=== PATIENT | male | born 1950 | race Caucasian/White ===

== ENCOUNTER 2016-05-19 07:34 | Day surgery (SDC) | payer OTHER ==
[2016-05-19] MEDS ORDERED: diphenhydrAMINE 25 MG CAP PO ONE ×2 (07:42→08:05)
[2016-05-19] MEDS ORDERED: FAMOTIDINE 20 MG TAB PO ONE (07:42)
[2016-05-19] MEDS ORDERED: DIAZEPAM 5 MG TAB PO ONE (07:42)
[2016-05-19] MEDS ORDERED: ASPIRIN EC 325 MG TAB PO ONE ×2 (07:42→08:05)
[2016-05-19] MEDS ORDERED: NS 1,000 ML IV ONE (07:42)
--- NOTE | 2016-05-19 08:02 | CPEKG ---
Heart Rate: 87 RR Interval: 690 P-R Interval: 140 QRSD Interval: 132 QT Interval: 384 QTC Interval: 462 P Bennett: 72 QRS Bennett: -58 T Wave Bennett: 25 EKG Severity - ABNORMAL ECG - EKG Impression: SINUS RHYTHM EKG Impression: RIGHT BUNDLE BRANCH BLOCK-- New since July 12, 2011 Electronically Signed By: Farooq Holt 19-May-2016 08:50:56
[2016-05-19] MEDS ORDERED: DIAZEPAM 5 MG TAB ONE (08:05)
[2016-05-19] MEDS ORDERED: FAMOTIDINE 20 MG TAB ONE (08:05)
[2016-05-19 08:20] LABS: % IMMATURE GRANULYOCYTES 0.4 % (0.0-1.1); ABSOLUTE IMMATURE GRANULOCYTES 0.03 10^3/uL (0.00-0.10); ADD DIFF? NO; ADD MORPH? NO; ADD SCAN? NO; ATYPICAL LYMPHOCYTE FLAG 10 (0-99); FRAGMENT RBC FLAG 0 (0-99); HEMATOCRIT 46.3 % (40.0-51.0); HEMOGLOBIN 15.7 g/dL (13.7-17.5); LEFT SHIFT FLG 0 (0-99); LIPEMIA HEMOLYSIS FLAG 90 (0-99); MEAN CELL HEMOGLOBIN 29.7 pg (27.9-34.1); MEAN CELL HEMOGLOBIN CONCENTR. 33.9 g/dL (32.4-36.7); MEAN CELL VOLUME 87.7 fL (81.5-99.8); MEAN PLATELET VOLUME 9.5 fL (8.7-11.7); PLATELET CLUMPS FLAG 10 (0-99); PLATELET COUNT 243 10^3/uL (150-400); RED BLOOD CELL COUNT 5.28 10^6/uL (4.40-6.38); RED CELL DISTRIBUTION WIDTH 13.7 % (11.5-15.2)
[2016-05-19 08:33] LABS: ANION GAP 11 mEq/L (8-16); CALCIUM 9.2 mg/dL (8.5-10.4); CARBON DIOXIDE 24 mEq/l (22-31); CHLORIDE 103 mEq/L (97-110); CHOLESTEROL 191 mg/dL (140-220); CHOLESTEROL/HDL RATIO 4.15 RATIO (1.00-4.97); GLOMERULAR FILTRATION RATE > 60; GLUCOSE 153 mg/dL (70-100); HIGH DENSITY LIPOPROTEIN 46 mg/dL (40-65); LDL/HDL RATIO 2.41 RATIO (1.00-3.64); LOW DENSITY LIPOPROTEIN 111 mg/dL (80-100); MAGNESIUM 1.9 mg/dL (1.6-2.3); NON-HIGH DENSITY LIPOPROTEIN 145 mg/dL (90-129); POTASSIUM 4.3 mEq/L (3.5-5.2); SODIUM 138 mEq/L (134-144); TRIGLYCERIDE 173 mg/dL (40-150); VERY LOW DENSITY LIPOPROTEINS 34 mg/dL (8-25)
[2016-05-19 08:38] LABS: INR 0.91 (0.83-1.16); PROTIME(PATIENT) 12.2 SEC (12.0-15.0)
[2016-05-19] MEDS ORDERED: LIDOCAINE 1% 30 ML SDV ONE (08:49)
[2016-05-19] MEDS ORDERED: HEPARIN 10,000 UNIT/10 ML MDV ONE (08:49)
[2016-05-19] MEDS ORDERED: MIDAZOLAM 2 MG/2 ML VIAL ONE ×2 (08:49→10:12)
[2016-05-19] MEDS ORDERED: VERAPAMIL 5 MG/2 ML VIAL ONE (08:49)
[2016-05-19] MEDS ORDERED: fentaNYL 100 MCG/2 ML INJ ONE ×2 (08:49→10:12)
[2016-05-19] MEDS ORDERED: IOPAMIDOL (ISOVUE 370) 100 ML BTL IV ONE ×2 (08:50→09:49)
[2016-05-19] MEDS ORDERED: ATROPINE SULFATE 1 MG/10 ML SYR IVP PRN (10:31)
[2016-05-19] MEDS ORDERED: NITROGLYCERIN 0.4 MG BTL SL PRN (10:31)
--- NOTE | 2016-05-19 10:36 | PDDXCAT ---
Diagnostic Cath Note - . Date: 05/19/16 [facility] Teacher: Kevin Indication: Class I/II angina, intolerance to med therapy or failure to respond High-risk criteria on non-invasive testing: stress-induced moderate-size multiple perfusion defects - Procedure Access: right wrist Procedure: left heart catheterization, coronary angiography, left ventriculogram - Materials Left Heart Cath size: 5F Left Heart Cath materials: JL3.5, pigtail, other (SiteSeer) - Findings-Left Heart Catheterization LM: Unobstructed LAD: Unobstructed LCX: Stent widely patent with collaterals to the distal right coronary RCA: 100% occluded in the midportion EDP: 11 mm of mercury LVEF: 65 Wall motion: Normal Complications: None Closure method: TR Band Assessment: Occluded right coronary artery with excellent collaterals associated with normal LV function. Patent circumflex artery stent. Plan: Attempt PCI of the chronically occluded right coronary artery with favorable characteristics. Intervention: After reviewing diagnostic angiograms it was elected to attempt PCI of the [place] right coronary. Patient was anticoagulated with heparin. Therapeutic ACT was confirmed. Using a 5 [place] JR4 guide the right coronary selectively intubated. Attempts at crossing the chronic occlusion with a 0.014 ship pilot 50, 0.014 fighter wire, and 0.014 luge wire made but failed despite adequate support with 2 mm and a 1.25 sprinter balloon. In light of excellent collaterals was elected to stop. Failed PCI and stenting of the chronically occluded right coronary. Continue chronic medical therapy. Considerations for more aggressive attempt if he fails medical therapy. Patient Problems: Problems Problem Status Onset CAD - Coronary arteriosclerosis Active Angina Active Placement of stent in coronary artery Active
--- NOTE | 2016-05-19 11:35 | CPEKG ---
Heart Rate: 75 RR Interval: 800 P-R Interval: 156 QRSD Interval: 132 QT Interval: 400 QTC Interval: 447 P Center Line: 66 QRS Center Line: -53 T Wave Center Line: 9 EKG Severity - ABNORMAL ECG - EKG Impression: SINUS RHYTHM EKG Impression: RIGHT BUNDLE BRANCH BLOCK EKG Impression: PROBABLE INFERIOR INFARCT, AGE INDETERMINATE EKG Impression: No significant change from May 19, 2016, 8:01 Electronically Signed By: Farooq Holt 19-May-2016 12:51:08
== END 2016-05-19 14:28 | disposition home or self-care (01) ==
LOC: FCATH 07:34
PROVIDERS: ATTEND Internal Medicine Interventional Cardiology
PROC: B2151ZZ Fluoroscopy of Left Heart using Low Osmolar Contrast (ICD-10-PCS; principal; 2016-05-19)
PROC: B2111ZZ Fluoroscopy of Multiple Coronary Arteries using Low Osmolar Contrast (ICD-10-PCS; principal; 2016-05-19)
PROC: 4A023N7 Measurement of Cardiac Sampling and Pressure, Left Heart, Percutaneous Approach (ICD-10-PCS; principal; 2016-05-19)
DX: I25.119 Atherosclerotic heart disease of native coronary artery with unspecified angina pectoris (principal); I25.82 Chronic total occlusion of coronary artery; Z53.09 Procedure and treatment not carried out because of other contraindication
CPT/HCPCS: 92920; 93005; 93458; C1725; C1769; C1887; J1644; J2250; J3010; Q9967